=== PATIENT | male | born 1935 | race Caucasian/White ===

== ENCOUNTER 2020-04-25 15:04 | Emergency (ER) | payer MEDICARE, OTHER ==
[~2020-04-25] VITALS: Ht 175.3 cm; Wt 54.0 kg
--- NOTE | 2020-04-25 15:40 | NUR ---
ACCIDENTALLY INSTILLED PRINTER INK TO LEFT EYE INSTEAD OF EYE DROP THURSDAY NIGHT( 3 DAYS AGO). PATIENT A/OX4, BREATHING EVEN AND UNLABORED, NO SOB NOTED, KEPT COMFORTABLE.
--- NOTE | 2020-04-25 16:46 | NUR ---
CALLED [facility], NO BEDS AVAILABLE.
[2020-04-25] MEDS ORDERED: MOXIFLOXACIN OPTH 3 ML BOTTLE LEFTEYE SCH (17:00)
[2020-04-25 17:28] LABS: BASOPHILS # (AUTO) 0.1 /CMM (0.0-0.2); BASOPHILS % (AUTO) 2.5 % (0.0-2.0); EOSINOPHILS % (AUTO) 1.6 % (0.0-6.0); HEMATOCRIT 41 % (39-51); HEMOGLOBIN 13.7 g/dL (13.5-17.5); LYMPHOCYTES # (AUTO) 1.2 /CMM (0.8-4.8); LYMPHOCYTES % (AUTO) 22.3 % (20.0-44.0); MEAN CORPUSCULAR HGB CONC 34 g/dl (31.0-36.0); MEAN CORPUSCULAR VOLUME 100 fL (80-96); MONOCYTES # (AUTO) 0.6 /CMM (0.1-1.30); MONOCYTES % (AUTO) 11.6 % (2.0-12.0); NEUTROPHILS # (AUTO) 3.2 /CMM (1.8-8.9); PLATELET COUNT (AUTO) 180 /CMM (150-450); WHITE BLOOD COUNT (AUTO) 5.2 K/uL (4.3-11.0)
[2020-04-25] MEDS ORDERED: CIPROFLOXACIN HCL 0.3% 5 ML BOTTLE LEFTEYE SCH (17:30)
[2020-04-25] MEDS ORDERED: CIPROFLOXACIN HCL 3.5 GM TUBE LEFTEYE SCH (17:30)
--- NOTE | 2020-04-25 17:30 | NUR ---
DR. MARTINEZ CALLED AND SPOKE TO DR. GALLAGHER FOR CONSULTATION.
[2020-04-25 17:42] LABS: CALCIUM, SERUM 9.2 mg/dL (8.5-10.1); CARBON DIOXIDE 32 mmol/L (21-32); CHLORIDE 102 mmol/L (98-107); GLUCOSE 96 mg/dL (74-106); POTASSIUM 4.5 mmol/L (3.5-5.1); SODIUM SERUM 139 mmol/L (136-145); UREA NITROGEN, BLOOD 17 mg/dL (7-18)
--- NOTE | 2020-04-25 18:00 | NUR ---
CALLED [facility] TO SEE IF ANY HOSPITAL HAS OPTHAMOLOGY. FAXED CLINICALS OVER TO [facility] SO HE CAN FIND BED AND PLACEMENT FOR PT. NUMBER FOR [facility] [phone].
[2020-04-25 18:38] LABS: CHOLESTEROL 202 mg/dL (<200); HDL CHOLESTEROL 62 mg/dL (40-60); LDL 134 mg/dL (0-99); TRIGLYCERIDES 57 mg/dL (30-150)
--- NOTE | 2020-04-25 18:47 | NUR ---
PATIENT AMBULATORY WITH STEADY GAIT. NO DISTRESS NOTED.
--- NOTE | 2020-04-25 18:48 | NUR ---
FAXED CLINICALS OVER TO [facility].
--- NOTE | 2020-04-25 19:19 | NUR ---
REPORT RECEIVED FROM CELESTINE BOWER
[2020-04-25] MEDS ORDERED: TETRAcaine 5 ML BOTTLE EACHEYE ONE (19:30)
--- NOTE | 2020-04-25 19:32 | NUR ---
ER MD AT BEDSIDE TO RE-EVAL PT. MARY-PEN AT BEDSIDE PER MD ORDER.
[2020-04-25] MEDS ORDERED: TIMOLOL 0.5% SOLN OPHTH 5 ML BOTTLE OP ONE (20:00)
[2020-04-25] MEDS ORDERED: acetaZOLAMIDE SODIUM 500 MG/VIAL VIAL IV ONE (20:00)
[2020-04-25] MEDS ORDERED: acetaZOLAMIDE SODIUM 500 MG/VIAL VIAL ONE (20:02)
[2020-04-25] MEDS ORDERED: TIMOLOL 0.5% SOLN OPHTH 5 ML BOTTLE ONE (20:02)
--- NOTE | 2020-04-25 20:12 | NUR ---
FACIAL AND CLINICALS [phone]
--- NOTE | 2020-04-25 20:19 | NUR ---
ERICA GAN TALKING TO [facility] PSYCHOTHERAPIST SOCIAL WORKER REGARDING PT.
[2020-04-25] MEDS ORDERED: WATER FOR INJECTION,STERILE 10 ML ONE (20:22)
--- NOTE | 2020-04-25 20:28 | NUR ---
ERICA GAN TALKING TO OPTHALMOLOGY FELLOW BILLY SCHULZ AT [facility].
[2020-04-25] MEDS ORDERED: prednisoLONE ACETATE 1% SUSP 5 ML BOTTLE LEFTEYE ONE (21:00)
--- NOTE | 2020-04-25 21:05 | NUR ---
TWO DROPS OF TIMOLOL GIVEN TO THE L EYE PER DR GALLAGHER'S ORDER.
--- NOTE | 2020-04-25 21:11 | NUR ---
SPOKE TO [facility] WITH REFERRAL INFO RECEIVED. DR. BAER [address] [facility] [address] [place]. [id number] PT CAN BE SEEN TOMORROW WALK-IN.
--- NOTE | 2020-04-25 21:18 | NUR ---
ERICA GAN TALKING TO DR. TAPIA REGARDING PT.
[2020-04-25 22:02] VITALS: BP 147/84
--- NOTE | 2020-04-25 22:02 | NUR ---
Patient discharged to home in stable condition. Written and verbal after care instructions given. Patient verbalizes understanding of instruction.IV removed. Catheter intact and site benign. Pressure and 4x4 applied to site. No bleeding noted.
== END 2020-04-25 22:03 | disposition home or self-care (01) ==
LOC: ER 15:04
DX: H10.212 Acute toxic conjunctivitis, left eye (principal); T49.5X5A Adverse effect of ophthalmological drugs and preparations, initial encounter; H54.7 Unspecified visual loss; Z60.2 Problems related to living alone; Y92.89 Other specified places as the place of occurrence of the external cause
CPT/HCPCS: 36415; 70450; 71045; 80048; 80061; 80305; 84484; 85025; 85730; 99285; J1120